=== PATIENT | female | born 1975 | race Caucasian/White ===

== ENCOUNTER 2016-09-26 07:53 | Observation (INO) | payer BC ==
[2016-09-07 08:25] VITALS: BMI 24.0
--- NOTE | 2016-09-07 08:58 | PAT Medication Instructions ---
Service Date Sep 07, 2016. Current Home Medication List Bupropion (Wellbutrin-Xl), 300 MG PO QAM Lorazepam (Ativan), 0.5 MG PO TID PRN for Anxiety Medication Instructions For Your Scheduled Surgery - Take the following medications the morning of surgery with a sip of water: Bupropion (Wellbutrin-Xl), 300 MG PO QAM Lorazepam (Ativan), 0.5 MG PO TID PRN for Anxiety - Take the following medications as scheduled the night before surgery: Bupropion (Wellbutrin-Xl), 300 MG PO QAM Lorazepam (Ativan), 0.5 MG PO TID PRN for Anxiety If you have any questions please call us at [phone] (Kesha Dickinson PA-C) or [phone] or [phone]
[2016-09-07 10:02] LABS: BASO % 0.8 %; BASO ABS # 0.03 K/uL (0-0.2); COMPLETE YES; EOS % 2.2 %; HEMATOCRIT 38.3 % (37-47); LYMPH % 25.3 %; LYMPH ABS # 0.91 K/uL (1.2-3.4); MEAN CELL VOLUME 83.4 fL (80-100); MEAN CORPUSCULAR HEMOGLOBIN 29.2 pg (25-34); MEAN PLATELET VOLUME 9.6 fL (7.4-10.4); MONO % 8.9 %; NEUT % 62.8 %; PLATELET COUNT 277 K/uL (130-400); RED BLOOD COUNT 4.59 M/uL (4.2-5.4)
[2016-09-07 10:27] LABS: BUN/CREATININE RATIO 11.7 (10-20); CALCIUM 9.1 mg/dl (8.5-10.1); CREATININE 0.65 mg/dl (0.60-1.20); POTASSIUM 3.6 mmol/L (3.5-5.1)
[2016-09-26] VITALS (7 sets, daily range): BP systolic 98–115; BP diastolic 62–77; PULSE 81–91; TEMP 36.2–36.9; O2SAT 96–99; Ht 157.5 cm; Wt 61.3 kg
[~2016-09-26] VITALS: Ht 157.5 cm; Wt 61.3 kg
[~2016-09-26 07:53] MED LIST: BUPRTAB51 PO; LACTATED RINGER'S 1000ML 1,000 ML IV SCH; LORA-741 PO
[2016-09-26] MEDS ORDERED: ROCURONIUM BROMIDE 10 MG/ML 5 ML VIAL ONE (08:30)
[2016-09-26] MEDS ORDERED: DEXAMETHASONE SOD INJ 4 MG/ML VIAL ONE (08:30)
[2016-09-26] MEDS ORDERED: GLYCOPYRROLATE INJ 0.2 MG/ML VIAL ONE ×2 (08:30→12:33)
[2016-09-26] MEDS ORDERED: NEOSTIGMINE METHYLSULFATE 5 MG/5 ML SYR ONE (08:30)
[2016-09-26] MEDS ORDERED: ONDANSETRON INJ 2 MG/ML 2 ML VIAL ONE ×2 (08:30→11:42)
[2016-09-26] MEDS ORDERED: LIDOCAINE HCL 2% 2 ML VIAL (20MG/ML) ONE (08:30)
[2016-09-26] MEDS ORDERED: FENTANYL CITRATE INJ 50 MCG/1 ML 2 ML VIAL ONE (08:30)
[2016-09-26] MEDS ORDERED: MIDAZOLAM HCL 1 MG/ML 2ML VIAL ONE (08:30)
[2016-09-26] MEDS ORDERED: PROPOFOL IV EMULSION 10 MG/ML 20 ML VIAL IV ONE (08:30)
[2016-09-26] MEDS ORDERED: METHYLENE BLUE 0.5% 10 ML VIAL ONE (09:16)
[2016-09-26] MEDS ORDERED: BACITRACIN 50000 UNIT VIAL ONE (09:17)
[2016-09-26] MEDS ORDERED: CEFAZOLIN SOD 1 GM VIAL ONE (09:17)
[2016-09-26] MEDS ORDERED: BACITRACIN OINT 15 GM TUBE ONE (09:17)
--- NOTE | 2016-09-26 09:28 | History & Physical Bridge Note ---
H&P Re-Evaluation Bridge Note: I have examined the patient, reviewed the History & Physical and in the interval since the performance of the History & Physical I have noted the following changes of clinical significance: No changes noted
[2016-09-26] MEDS ORDERED: SCOPOLAMINE 1.5 MG TDSY TD ONE (09:47)
--- NOTE | 2016-09-26 09:58 | DIAGNOSTIC IMAGING REPORT ---
LYMPHOSCINTIGRAPHY CLINICAL HISTORY: Right breast cancer. PROCEDURE: Using standard sterile technique, 4 intradermal and one deep injection of 0.5 mCi of Lymphoseek was placed in the right breast. The patient tolerated the procedure well. There were no immediate complications. The patient was subsequently transported to the surgical suite. No imaging was obtained at the referring physician's request. IMPRESSION: Injection of 0.5 mCi of Lymphoseek in the right breast. Electronically signed by: Emiliano Vaughan M.D. 09/26/2016 9:57 AM Dictated Date/Time: 09/26/2016 9:45 AM
[2016-09-26] MEDS: CEFAZOLIN 2000 MG/60 ML D5W IV SCH ×2 (10:18→16:42)
[2016-09-26] MEDS: LACTATED RINGER'S 1000ML 1,000 ML IV SCH ×2 (10:25→16:42)
[2016-09-26] MEDS ORDERED: HYDROmorphone INJ 2 MG/ML SYR/VIAL ONE ×2 (10:47→15:36)
[2016-09-26] MEDS ORDERED: SUCCINYLCHOLINE 100MG/5ML SYR IV ONE (10:50)
--- NOTE | 2016-09-26 13:32 | [facility] Post Operative Brief Note ---
Immediate Operative Summary Operative Date Sep 26, 2016. Pre-Operative Diagnosis breast cancer Post-Operative Diagnosis same as preop Procedure(s) Performed Right Mastectomy with [place] Lymph Node Biopsy and Axillary Node Dissection; Right Breast Reconstruction with Tissue Expanders and Allograft Surgeon Dr. Yuni Mast & Dr. Sd Fernandez Facing Machine Operator Surgeon(s) Gia Mckinney PA-C & Lorraine Kingston PA-C & Estimated Blood Loss 20 cc Findings See dictation Specimens A:[place] and nonsentinal lymph nodes -right breast B: right breast and axillary contents- silk stitch lateral Frozen: 1. sentinel lymph node #1 blue invevo 47, exvevo 845- left room at 1147 2. sentinel lymph node #2 invevo 111, exvevo 325- left room at 1153 Drains 2 J-P drains Anesthesia General Complication(s) None Disposition Recovery Room / PACU
[2016-09-26] MEDS ORDERED: MoRPHine SULFATE 4 MG/ML 1 ML CARP\\VIAL IV PRN (13:45)
[2016-09-26] MEDS ORDERED: ONDANSETRON INJ 2 MG/ML 2 ML VIAL IV PRN ×2 (13:45→15:30)
[2016-09-26] MEDS ORDERED: METOPROLOL TARTRATE 1 MG/ML VIAL ONE (14:09)
--- NOTE | 2016-09-26 14:24 | OPERATIVE REPORT ---
DATE OF OPERATION: 09/26/2016 PREOPERATIVE DIAGNOSIS: Carcinoma of the right breast. POSTOPERATIVE DIAGNOSIS: Carcinoma of the right breast with metastatic disease to the axillary lymph nodes. PROCEDURE: Mastectomy with sentinel lymph node biopsy followed by axillary node dissection, which was performed by and then immediate reconstruction performed by Dr. Rory Fernandez who will dictate that portion of the case mgr: Gia Ramos PA-C. FINDINGS: The mass was in the lower outer portion of the breast. Its surface was not encountered. The flaps were of uniform thickness. There did not appear to be extension posterior to the prepectoral fascia. The patient had 2 sentinel lymph nodes identified, and 1 nonsentinel lymph node. The first sentinel lymph node had an in-vivo count of 47 and ex-vivo count of 845 and the second sentinel lymph node had an in-vivo count of 111 with an ex-vivo count of 325. Frozen section on sentinel lymph node #1 revealed a macrometastasis measuring approximately 4 mm. This was a small lymph node. The second was also small lymph node but was negative for metastatic disease. There were multiple large stones in the axilla. The thoracodorsal nerve and the long thoracic nerve were identified and preserved. They were tested at the end of the resection and were intact. The sentinel lymph node #1 was blue. TECHNIQUE: The patient was given a general anesthetic and the area was prepped and draped in the usual sterile fashion. Prior to prepping and draping blue dye was injected in the periareolar area. The incision was sketched on the breast. Superior and inferior incisions were made. The superior incision flap was created keeping a uniform thickness working from inferior to superior using cautery up to the clavicle and working from the lateral border of the sternum on the medial side to the skin portion of the incision laterally. The inferior flap was then created in a similar fashion. Once that was completed, I was then able to approach the axilla after the lateral breast from the skin. The Neoprobe was used to identify the 2 sentinel lymph nodes. Once they were able to be identified and grasped with an Allis and were from the surrounding tissues using the LigaSure and sent for pathology with findings as above. Waiting for the pathology, the nonsentinel lymph node which was rather large was identified. This was away from the surrounding tissues as well. It did not require a frozen section after results from the 1st one were available. At that point, axillary node dissection became necessary. The prepectoral fascia was divided along the dissection of the flaps and then off the anterior surface of the pectoralis major muscle until the lateral border was identified. It was dissected then posteriorly along the chest wall until that allowed me then to enter the axilla. Additional axillary fascia was opened and I was able to then work superiorly until I could identify the axillary vein. Axillary vein was skeletonized in the mid portion working medial to lateral over towards the chest wall. One of the large anterior veins extending inferiorly off that was identified. It was left intact until I identified the 2 nerves, but eventually was noted ligated proximally, distally and divided. Once I identified that I worked a little bit more laterally and worked posteriorly and was then able to identify the thoracodorsal neurovascular bundle. Once that was identified, the tissue on the anterior surface was dissected away using blunt and sharp dissection where appropriate. That allowed me then to complete the lateral dissection off the inferior border of the axillary vein. That allowed me to better visualize the thoracodorsal neurovascular bundle. The thoracodorsal nerve was identified, was stimulated and was intact. I then dissected and freed the medial side of that and worked over towards the chest wall which then allowed me to identify the long thoracic nerve. The tissue between the long thoracic nerve and the thoracodorsal bundle was then dissected away from the deeper tissue and away from the latissimus muscle. I had elevated the lateral border of the pectoralis major and pectoralis minor and dissected the level 2 nodes away including them with the specimen. That allowed me to better visualize the long thoracic nerve and to leave it intact keeping the axillary tissue medial until the nerve entered the serratus anterior musculature. That then allowed better visualization of the course of the thoracodorsal bundle. That was then dissected away from that until it dove posteriorly towards the latissimus. Once it was completely freed, I was then able to complete the lateral dissection of the axillary contents and the inferior dissection. The remainder of the lateral skin attachments were divided and the specimen was completely. This specimen was marked laterally with a silk suture and sent for pathology. The area was then inspected for bleeding. The nerves were again stimulated and were intact. The axilla was irrigated and irrigation removed. There was no further oozing. Reconstruction was then performed and that portion will be dictated by Dr. Fernandez. The blood loss from that portion of the case was 20 mL. Sponge, needle and instrument counts were correct. I attest to the content of the Intraoperative Record and any orders documented therein. Any exceptio ns are noted below.
[2016-09-26] MEDS ORDERED: MUPIROCIN 2% OINT 22 GM TUBE ONE (14:39)
[2016-09-26] MEDS ORDERED: IV FLUIDS COMPLETED PRN (15:00)
[2016-09-26] MEDS ORDERED: ATROPINE SULFATE 0.1 MG/ML 5ML SYR IV PRN (15:30)
[2016-09-26] MEDS ORDERED: PHENYLEPHRINE 100MCG/ML 5ML SYR IV PRN (15:30)
[2016-09-26] MEDS ORDERED: HYDROmorphone INJ 2 MG/ML SYR/VIAL IV PRN (15:30)
[2016-09-26] MEDS ORDERED: EpHEDrine SULFATE INJ 50 MG/ML AMP IV PRN (15:30)
--- NOTE | 2016-09-26 15:37 | OPERATIVE REPORT ---
DATE OF OPERATION: 09/26/2016 ADDENDUM The allograft used was AlloMax 1 surgical graft, lot #[id number], serial #[id number], reference #[id number], expiration date ____. I attest to the content of the Intraoperative Record and any orders documented therein. Any exceptio ns are noted below.
--- NOTE | 2016-09-26 15:45 | Anesthesiology Progress Note ---
Anesthesia Post Op Note Date & Time Sep 26, 2016 at 15:45 Vital Signs Pain Intensity: 9 Vital Signs Past 12 Hours Date Time Temp Pulse Resp B/P Pulse Ox O2 Delivery O2 Flow Rate FiO2 09/26/16 15:37 90 17 09/26/16 15:31 90 17 09/26/16 15:31 91 17 100 09/26/16 15:30 129/78 09/26/16 15:26 77 10 100 09/26/16 15:26 78 10 09/26/16 15:25 123/82 09/26/16 15:21 91 26 09/26/16 15:21 92 26 100 09/26/16 15:20 125/80 09/26/16 15:16 92 21 09/26/16 15:16 92 21 100 09/26/16 15:15 117/63 09/26/16 15:11 91 11 09/26/16 15:11 91 11 122/73 99 09/26/16 15:06 89 3 09/26/16 15:06 89 3 126/78 99 09/26/16 15:06 36.4 89 16 126/78 99 Mask 10 09/26/16 08:15 36.9 81 16 115/76 99 Room Air Notes Mental Status: alert / awake / arousable, participated in evaluation Pt Amnestic to Procedure: Yes Nausea / Vomiting: adequately controlled Pain: adequately controlled Airway Patency, RR, SpO2: stable & adequate BP & HR: stable & adequate Hydration State: stable & adequate Anesthetic Complications: no major complications apparent
[2016-09-26] MEDS: SODIUM CHLORIDE 0.9% 1000ML 1,000 ML IV SCH ×2 (16:41→23:49)
[2016-09-26] MEDS: OXYCODONE/ACETAMINOPHEN 5-325 TAB PO PRN (18:57)
[2016-09-26] MEDS: CEPHALEXIN MONOHYDRATE 500 MG CAP PO SCH ×2 (19:01→21:02)
[2016-09-27 03:06] VITALS: BP 100/60; PULSE 95; TEMP 36.8; O2SAT 95
[2016-09-27] MEDS: OXYCODONE/ACETAMINOPHEN 5-325 TAB PO PRN ×4 (03:16→19:33)
--- NOTE | 2016-09-27 07:04 | OPERATIVE REPORT ---
DATE OF OPERATION: 09/26/2016 PREOPERATIVE DIAGNOSIS: Carcinoma, right breast. POSTOPERATIVE DIAGNOSIS: Same. PROCEDURE: Staged immediate reconstruction, right breast with tissue lacquer shader and allograft. SURGEON: Dr. Rory Fernandez. SOMMELIER: Lorraine Galarza PA-C ANESTHESIA: General endotracheal. ESTIMATED BLOOD LOSS: 43 mL. FLUIDS: 2 liters. URINE: 600 mL DRAINS: Two #10 flat David-Mcnulty drains. ATTESTATION: Present for the entire procedure. INDICATIONS: The patient is a 41-year-old female referred to me by Dr. Mast to discuss reconstructive options. After careful discussion, she elected to proceed with a tissue lacquer shader allograft method. A unilateral reconstruction will be performed. She has small breasts and therefore we will use something in the 350 cubic cm range. DESCRIPTION OF PROCEDURE: In the preoperative holding area, I marked the patient with her standing, I marked the inframammary crease as well as anterior axillary line. She was brought to the operating room where she was placed under general endotracheal anesthesia, identified her with 2 forms of identification documented in the nursing log above. Following preparation and draping, a timeout was held. The procedure for plastic surgery commenced after Dr. Mast finished the mastectomy. First the inframammary crease was defined along the chest wall by marking it. Next, the pectoralis major muscle was elevated off the chest wall and the origin from 6 o'clock to 9 o'clock was dissected and taken down. The wounds were irrigated. A piece of AlloMax 1 allograft was brought up to the field. It was soaked in 3 separate baths of saline for 5 minutes each. It was then sutured into position medially and laterally with interrupted 2-0 Vicryl sutures. Laterally, it was tacked to the chest wall. A Cope CPX4 tall height tissue lacquer shader with tabs and was brought up to the field. It did not have any air leaks. It was just placed into the wound and markings were then made to correspond to the anterior axillary line as well as the inframammary crease. It was then deflated and placed back in a protective basin. The allograft was sutured at markings had been made at 6 o'clock, 9 o'clock and 3 o'clock for the tab. These were marked on the skin. Two interrupted 2-0 Vicryl were placed inferiorly in the midline, leaving room for the tab. They were sutured to the chest wall and then to the subcutaneous tissue, correspond to the inframammary crease. Excess tissue was trimmed medially and laterally and again interrupted 2-0 Vicryls were placed in a similar fashion. This was then followed by running 2-0 Vicryl sutures, one starting medial and running towards the midline the other starting medial and running towards the axilla. The wounds were irrigated. Two stab wounds were made for #15 David-Mcnulty drains, which were later placed, one into the pocket and axilla where Dr. Mast to perform axillary dissection, the other was then placed anteriorly and inferiorly placed subcutaneously. Three 2-0 Vicryls were placed underneath the allograft along the inframammary crease at 6 o'clock, 9 o'clock and 3 o'clock; they were placed with the suture tabs. The lacquer shader was drawn down into the pocket and the sutures were secured. The pocket was then closed with running 2-0 Vicryl sutures, one starting medial working towards the midline and the other lateral working towards the midline and they were tied to each other. 50 mL of saline were injected through a closed system into the lacquer shader. The wounds were then closed with buried 3-0 Monocryl dermal sutures and a running 3-0 Quill subcuticular suture. Dermabond was applied to the incision, dressings, a surgical bra applied, the patient was extubated and returned to the recovery area in stable condition. The allograft used was AlloMax 1 surgical graft, lot #[id number], serial #[id number], reference #[id number], expiration date 2021-02. I attest to the content of the Intraoperative Record and any orders documented therein. Any exceptions are noted below. [facility]
[2016-09-27 07:52] VITALS: BP 104/70; PULSE 91; TEMP 37; O2SAT 96
[2016-09-27 08:40] LABS: BASO % 0.1 %; BASO ABS # 0.01 K/uL (0-0.2); COMPLETE YES; EOS % 0.2 %; HEMATOCRIT 33.3 % (37-47); IG% 0.2 %; LYMPH % 23.3 %; LYMPH ABS # 1.98 K/uL (1.2-3.4); MEAN CELL VOLUME 83.9 fL (80-100); MEAN CORPUSCULAR HEMOGLOBIN 28.5 pg (25-34); MEAN CORPUSCULAR HGB CONC 33.9 g/dl (32-36); MONO % 7.1 %; NEUT % 69.1 %; PLATELET COUNT 260 K/uL (130-400); RED BLOOD COUNT 3.97 M/uL (4.2-5.4)
[2016-09-27] MEDS: CEPHALEXIN MONOHYDRATE 500 MG CAP PO SCH ×4 (09:37→20:25)
[2016-09-27] MEDS: SODIUM CHLORIDE 0.9% 1000ML 1,000 ML IV SCH (09:43)
--- NOTE | 2016-09-27 10:21 | Surgery Progress Note ---
Surgery Progress Note Date of Service Sep 27, 2016. Subjective Post OP Day: 1 (s/p right mastectomy with axillary lymph node dissection and immediate reconstruction) Objective Vital Signs: Date Time Temp Pulse Resp B/P Pulse Ox O2 Delivery O2 Flow Rate FiO2 09/27/16 08:19 Room Air 09/27/16 07:52 37.0 91 18 104/70 96 Room Air 09/27/16 03:06 36.8 95 14 100/60 95 Room Air 09/26/16 23:50 Room Air 09/26/16 23:05 36.7 81 16 98/62 96 Room Air 09/26/16 19:37 36.6 87 17 104/70 97 Nasal Cannula 2.0 09/26/16 18:42 36.4 85 17 111/69 97 Nasal Cannula 2.0 09/26/16 17:32 36.9 85 16 102/68 97 Nasal Cannula 2.0 09/26/16 17:07 36.2 85 17 110/71 97 Nasal Cannula 2.0 09/26/16 16:35 98 Nasal Cannula 2.0 09/26/16 16:35 98 Nasal Cannula 2.0 09/26/16 16:35 36.9 91 16 114/77 98 Nasal Cannula 2.0 09/26/16 16:08 90 11 09/26/16 16:08 90 11 98 09/26/16 16:05 115/80 09/26/16 16:03 82 7 09/26/16 16:03 82 7 98 09/26/16 16:00 36.6 92 18 115/80 99 Nasal Cannula 2 09/26/16 16:00 115/77 09/26/16 15:58 78 7 99 09/26/16 15:58 78 7 09/26/16 15:55 115/76 09/26/16 15:53 79 8 91 09/26/16 15:53 79 8 09/26/16 15:50 123/83 09/26/16 15:48 84 9 09/26/16 15:48 83 9 93 09/26/16 15:45 120/80 09/26/16 15:43 82 7 09/26/16 15:43 82 7 99 09/26/16 15:40 130/76 09/26/16 15:38 87 9 100 09/26/16 15:38 88 9 09/26/16 15:37 90 17 09/26/16 15:31 90 17 09/26/16 15:31 91 17 100 09/26/16 15:30 129/78 09/26/16 15:26 77 10 100 09/26/16 15:26 78 10 09/26/16 15:25 123/82 09/26/16 15:21 91 26 09/26/16 15:21 92 26 100 09/26/16 15:20 125/80 09/26/16 15:16 92 21 09/26/16 15:16 92 21 100 09/26/16 15:15 117/63 09/26/16 15:11 91 11 09/26/16 15:11 91 11 122/73 99 09/26/16 15:06 89 3 09/26/16 15:06 89 3 126/78 99 09/26/16 15:06 36.4 89 16 126/78 99 Mask 10 Physical Exam: NIK drainage (serosanguienous) General Appearance: WD/WN, no apparent distress Head: normocephalic, atraumatic Respiratory/Chest: no respiratory distress, no accessory muscle use Incision(s): clean (dressing intact, incision not inspected POD #1), dry Laboratory Results: Results Past 24 Hours Test 09/27/16 08:30 Range/Units White Blood Count 8.50 4.8-10.8 K/uL Red Blood Count 3.97 4.2-5.4 M/uL Hemoglobin 11.3 12.0-16.0 g/dL Hematocrit 33.3 37-47 % Mean Corpuscular Volume 83.9 80-100 fL Mean Corpuscular Hemoglobin 28.5 25-34 pg Mean Corpuscular Hemoglobin Concent 33.9 32-36 g/dl Platelet Count 260 130-400 K/uL Mean Platelet Volume 9.0 7.4-10.4 fL Neutrophils (%) (Auto) 69.1 % Lymphocytes (%) (Auto) 23.3 % Monocytes (%) (Auto) 7.1 % Eosinophils (%) (Auto) 0.2 % Basophils (%) (Auto) 0.1 % Neutrophils # (Auto) 5.87 1.4-6.5 K/uL Lymphocytes # (Auto) 1.98 1.2-3.4 K/uL Monocytes # (Auto) 0.60 0.11-0.59 K/uL Eosinophils # (Auto) 0.02 0-0.5 K/uL Basophils # (Auto) 0.01 0-0.2 K/uL RDW Standard Deviation 39.7 36.4-46.3 fL RDW Coefficient of Variation 13.0 11.5-14.5 % Immature Granulocyte % (Auto) 0.2 % Immature Granulocyte # (Auto) 0.02 0.00-0.02 K/uL Assessment & Plan POD # 1 s/p Right Simple Mastectomy with Axillary Lymph Node dissection and immediate reconstruction -AVSS - No leukocytosis - Pain moderate, controlled - tolerating regular diet - H&H stable Plan: Continue current pain management po prn continue regular diet continue NIK drains to bulb suction Stay one more night Dr. Mast to evaluate tomorrow Encouraged ambulation Dr. Richardson has seen and examined patient, agrees with above stated findings and treatment plan.
[2016-09-27 12:00] VITALS: BP 115/81; PULSE 78; TEMP 37; O2SAT 98
[2016-09-27 16:12] VITALS: BP 129/85; PULSE 85; TEMP 36.7; O2SAT 96
[2016-09-27] MEDS: DOCUSATE SODIUM 100 MG CAP PO SCH (20:25)
[2016-09-27 23:45] VITALS: BP 123/79; PULSE 67; TEMP 36.6; O2SAT 97
[2016-09-28] MEDS: OXYCODONE/ACETAMINOPHEN 5-325 TAB PO PRN ×3 (00:21→10:40)
--- NOTE | 2016-09-28 07:10 | Surgery Progress Note ---
Surgery Progress Note Date of Service Sep 28, 2016. Subjective Post OP Day: 2 + flatus, + pain controlled (Incision clean and dry), No nausea, No vomiting Incisional pain Objective Vital Signs: Date Time Temp Pulse Resp B/P Pulse Ox O2 Delivery O2 Flow Rate FiO2 09/28/16 00:10 Room Air 09/27/16 23:45 36.6 67 16 123/79 97 Room Air 09/27/16 16:12 36.7 85 18 129/85 96 Room Air 09/27/16 16:00 Room Air 09/27/16 12:00 37.0 78 16 115/81 98 09/27/16 08:19 Room Air 09/27/16 07:52 37.0 91 18 104/70 96 Room Air Physical Exam: NIK drainage (NIK#1:120 cc yesterday, 40cc last shift; NIK#2: 135cc yesterday, 50cc last shift; serosanguinous) Laboratory Results: Results Past 24 Hours Test 09/27/16 08:30 09/28/16 04:44 Range/Units White Blood Count 8.50 4.8-10.8 K/uL Red Blood Count 3.97 4.2-5.4 M/uL Hemoglobin 11.3 12.0-16.0 g/dL Hematocrit 33.3 37-47 % Mean Corpuscular Volume 83.9 80-100 fL Mean Corpuscular Hemoglobin 28.5 25-34 pg Mean Corpuscular Hemoglobin Concent 33.9 32-36 g/dl Platelet Count 260 130-400 K/uL Mean Platelet Volume 9.0 7.4-10.4 fL Neutrophils (%) (Auto) 69.1 % Lymphocytes (%) (Auto) 23.3 % Monocytes (%) (Auto) 7.1 % Eosinophils (%) (Auto) 0.2 % Basophils (%) (Auto) 0.1 % Neutrophils # (Auto) 5.87 1.4-6.5 K/uL Lymphocytes # (Auto) 1.98 1.2-3.4 K/uL Monocytes # (Auto) 0.60 0.11-0.59 K/uL Eosinophils # (Auto) 0.02 0-0.5 K/uL Basophils # (Auto) 0.01 0-0.2 K/uL RDW Standard Deviation 39.7 36.4-46.3 fL RDW Coefficient of Variation 13.0 11.5-14.5 % Immature Granulocyte % (Auto) 0.2 % Immature Granulocyte # (Auto) 0.02 0.00-0.02 K/uL Assessment & Plan S/P right mastectomy with right axiliary node dissection Doing well D/C to home Follow up with Dr. Fernandez as scheduled Follow up with me in 2 weeks.
--- NOTE | 2016-09-28 07:15 | Discharge Instructions ---
Discharge Instructions Date of Service Sep 28, 2016. Admission Reason for Admission: Malignant Adrian of Lower Outer Quadrant of Right Sandrine Discharge Discharge Diagnosis / Problem: Same Discharge Goals Goal(s): Improve disease control Activity Recommendations Activity Limitations: per Instructions/Follow-up section Lifting Limitations: no more than 10 pounds (with right arm) Shower/Bathe: keep incision dry . Instructions / Follow-Up Instructions / Follow-Up MEDICATIONS: Resume previous medications unless instructed otherwise by your surgeon. * Percocet 5/325 mg one tablet every 4 hours as needed for pain. * Ibuprofen 600 mgm every 6 hours as needed for pain. * Keflex 500 mg 4 times per day until drains removed SPECIAL CARE INSTRUCTIONS: * Wear bra day and night until seen in office. * Empty and record drains at least 3 times per or as needed. Record each drain separately * Call the surgeon's office with any questions or concerns - (ex. temperature higher than 101 degrees F, excessive bleeding or pain). FOLLOW UP VISIT: If not already scheduled, please call the office for a follow-up appointment for next week at . Current Hospital Diet Patient's current hospital diet: Regular Diet Discharge Diet Recommended Diet: Regular Diet Procedures Procedures Performed: Right Mastectomy with [place] Lymph Node Biopsy and Axillary Node Dissection; Right Breast Reconstruction with Tissue Expanders and Allograft Pending Studies Studies pending at discharge: yes List of pending studies: Pathology Medical Emergencies . Who to Call and When: Medical Emergencies: If at any time you feel your situation is an emergency, please call 911 immediately. . Non-Emergent Contact Non-Emergency issues call your: Primary Care Provider, Surgeon Call Non-Emergent contact if: your pain is worsening, wound has increased redness, wound has increased pain . "Provider Documentation" section prepared by Alex Mast. VTE Core Measure Inpt VTE Proph given/why not?: Treatment not indicated
[2016-09-28 08:03] VITALS: BP 132/86; PULSE 68; TEMP 36.7; O2SAT 96
[2016-09-28 08:15] LABS: BASO % 0.3 %; BASO ABS # 0.02 K/uL (0-0.2); COMPLETE YES; EOS % 0.9 %; HEMATOCRIT 33.9 % (37-47); IG% 0.1 %; LYMPH ABS # 2.05 K/uL (1.2-3.4); MEAN CELL VOLUME 83.9 fL (80-100); MEAN CORPUSCULAR HEMOGLOBIN 28.7 pg (25-34); MEAN CORPUSCULAR HGB CONC 34.2 g/dl (32-36); MEAN PLATELET VOLUME 9.2 fL (7.4-10.4); NEUT % 61.7 %; PLATELET COUNT 260 K/uL (130-400); RED BLOOD COUNT 4.04 M/uL (4.2-5.4); WHITE BLOOD COUNT 6.84 K/uL (4.8-10.8)
[2016-09-28] MEDS: CEPHALEXIN MONOHYDRATE 500 MG CAP PO SCH (08:41)
[2016-09-28] MEDS: DOCUSATE SODIUM 100 MG CAP PO SCH (08:41)
[2016-09-28 10:28] VITALS: BP 132/86; PULSE 68; TEMP 36.7; O2SAT 96
--- NOTE | 2016-09-30 11:05 | Discharge Summary ---
Discharge Summary Dates Admission Date / Time: Sep 26, 2016 at 13:38 Discharge Date: Sep 28, 2016 Dispostion / Condition Discharge Disposition: Home Condition at Discharge: Good Principal Diagnosis (1) Breast cancer metastasized to axillary lymph node Problem List (1) Breast cancer metastasized to axillary lymph node (2) Broken jaw Consultations / Procedures Consultations: None Procedures: Right simple mastectomy with sentinel lymph node biopsy and axillary dissection Immediate reconstruction with tissue expanders and allograft Pending Studies / Follow-Up None Medication Reconciliation Continued Medications: Bupropion (Wellbutrin-Xl) 300 Mg Tabcr 300 MG PO QAM, TAB Lorazepam (Ativan) 0.5 Mg Tab 0.5 MG PO TID PRN for Anxiety, TAB Admission HPI Per the Admitting provider: Yolis is a 41 year-old female who was scheduled for elective right simple mastectomy and sentinel lymph node biopsy for diagnosis of right breast invasive ductal carcinoma. Yolis was also having immediate reconstruction with Dr. Fernandez with tissue expanders and allograft. Hospital Course (1) Breast cancer metastasized to axillary lymph node Patient tolerated procedures well and was transferred to PACU in stable condition. She was taken to Med/Surg floor for her postoperative care. She was started on oral antibiotics for the reconstruction with allograft (Keflex). Diet was advanced to regular no restrictions diet, IV and oral pain medication was ordered as needed and IV fluids continued. POD # 1 Yolis was doing well. Pain controlled with oral pain medication, no chest pain, shortness of breath, nausea, or vomiting. She had about 45 cc from NIK Drain # 1 and 120 cc from NIK drain # 2 since surgery. Serosanguineous. H&H stable. Incision was not inspected on POD # 1. POD # 2, pain controlled, NIK drain still serosanguineous but decreasing. Vitals stable and tolerating regular diet. She was discharged home with NIK drains on POD # 2. Overall hospital course was uneventful. Discharge Instructions As given to patient Copies To Primary Care Provider: Mary Adrian DO. Problem Qualifiers (1) Breast cancer metastasized to axillary lymph node: Laterality: right Qualified Codes: C50.911 - Malignant neoplasm of unspecified site of right female breast; C77.3 - Secondary and unspecified malignant neoplasm of axilla and upper limb lymph nodes
[2017-01-18] MEDS ORDERED: PROC1TAB5 PO (08:16)
[2017-01-18] MEDS ORDERED: ONDA8TAB12 PO (08:16)
[2017-01-18] MEDS ORDERED: DXM/4 PO (08:17)
[2017-01-18] MEDS ORDERED: POLY335019 PO (08:23)
[2017-04-24] MEDS ORDERED: BUPRTAB51 PO (15:30)
== END 2016-09-28 11:00 | disposition home or self-care (01) ==
LOC: ENRESERVTM → ENRESERVDT → C.ACU 07:53 → C.MSN 13:38
PROVIDERS: ADMIT Surgery; ATTEND Surgery
DX: C50.911 Malignant neoplasm of unspecified site of right female breast (principal); C77.3 Secondary and unspecified malignant neoplasm of axilla and upper limb lymph nodes

== ENCOUNTER → 2017-06-28 | Outpatient (CLI) | payer OTHER ==
[~2017-06-28] MED LIST changes: -LACTATED RINGER'S 1000ML 1,000 ML IV SCH; +POLY335019 PO; +TAMO20TA9 PO
[2017-06-28 15:02] VITALS: BP 106/73; PULSE 75; TEMP 36.4; O2SAT 98
--- NOTE | 2017-06-28 16:17 | Radiation Oncology Follow-Up ---
Radiation Oncology Follow-Up Date of Visit Jun 28, 2017. Reason For Visit One-month follow-up in cancer survivorship care plan Radiation Completion Date finished 05-23-2017 Diagnosis (1) Breast cancer metastasized to axillary lymph node Onset Date: 06/15/2016 Histology Subtype: ductal Stage: ll (B) Permanent Comment: Abnormal right breast mammogram Status post biopsy 06/15/2016 Invasive ductal carcinoma Estrogen receptor positive, progesterone receptor positive, HER-2/ruben negative Status post bilateral MRI 07/19/2016 Status post right mastectomy and sentinel lymph node biopsy followed by axillary node dissection. Immediate reconstruction with tissue expanders on 08/2016 Stage pT2 pN1a 3 of 24 nodes positive BRCA1 and BRCA2 analysis negative Systemic chemotherapy 4 cycles of Adriamycin and Cytoxan followed by weekly Taxol for 12 weeks Status post completion of radiation therapy to the right chest wall, supraclavicular and axilla 05/23/2017. She received 6240 cGy utilizing conventional radiation therapy. Last Edited By: Josephine Peñaloza on Jun 28, 2017 16:12 History of Present Illness Ms. Bello is without a family history of breast cancer. He underwent her first bilateral screening mammogram on 05/20/2015. This showed no abnormalities and was given a BI-RADS Category 1. More recently on 06/08/2016 the patient underwent a repeat bilateral breast mammogram and ultrasound. This showed a solid mass at the 7 o'clock position involving the right breast. This lesion measured 2.1 x 1.0 x 1.1 cm. Patient went on to have a biopsy of the right breast at the 6 to 7 o'clock position along the areolar edge on 2015. This revealed an invasive ductal carcinoma, histologic grade 2. The tumor measured 1.3 cm in greatest dimension. Estrogen receptors were strongly positive, progesterone receptors were strongly positive and HER-2/ruben on "protein expression was negative by IHC. Accession #: [id number]. The patient was seen by Dr. Mast on 07/06/2016. His examination revealed a palpable mass in the lower inner breast at the edge of the areola. No axillary adenopathy was appreciated. No other changes were noted. He discussed surgical options that included breast lumpectomy versus mastectomy with or without reconstruction. The patient was considering her options. Dr. Mast ordered breast MRI given her very dense breasts. The patient underwent bilateral breast MRIs with and without contrast on 07/23/2016.. In the right breast an irregular enhancing 1.7 x 1.4 x 1.4 cm mass was noted in the lower outer quadrant at the site of the known cancer. This demonstrated fast initial enhancement with washout. No other areas of abnormal enhancement were seen. No abnormal axillary lymph nodes were visualized. In the left breast no suspicious enhancement were seen no abnormal axillary lymph nodes were visualized. The patient wished, after consideration to proceed with a right breast mastectomy and immediate reconstruction. Patient ultimately met with Dr. Fernandez to discuss these options. The patient agreed to proceed with a mastectomy on the right with immediate reconstruction utilizing subpectoral tissue expanders. On 09/26/2016 the patient underwent a right breast mastectomy and immediate reconstruction with subpectoral tissue expanders. The modified radical mastectomy specimen identified a tumor measuring 4.0 x 1.5 x 1.5 cm. This was an invasive mammary carcinomaspecial type. Was a Michael grade 2 of 3. There was intermediate grade DCIS without necrosis identified. There was no extensive intraductal component and no lymphovascular space invasion identified. There was no perineural invasion identified. The margin on the invasive carcinoma was negative with the closest margin 0.8 cm from the deep margin. The DCIS margin was negative with the distance from the closest margin 0.7 cm also from the deep margin. The patient had a sentinel lymph node removed. On frozen section it revealed a macro metastatic deposit of adenocarcinoma. Dr. aMst therefore proceeded with a axillary dissection and removed an additional 21 nodes. Of these additional 21 nodes 2 of them contained metastatic deposit 1 a macro met and the second a micro-met. Therefore a total of 3 out of 22 lymph nodes were positive to macro metastasis one micrometastasis. No extranodal extension was identified. The size of the largest prostatic deposit was 0.3 cm. The final AJCC pathologic staging was therefore a pT2 pN1a, ER positive, NJ positive and HER-2/ruben negative Case: [id number]. The patient was seen by Dr. Hero Levine for consideration of adjuvant systemic therapy. He ordered staging procedures consisting of a bone scan performed on 10/27/2016. This showed no evidence of osteoblastic metastatic disease. CT scan of the chest abdomen and pelvis was performed on 11/03/2016. This showed no evidence of metastatic disease within the soft tissue of the chest abdomen or pelvis. There was a thoracolumbar scoliosis appreciated. A small sclerotic density was noted within the T6 and T3 vertebral bodies most likely representing bone islands. There was no evidence of abnormal adenopathy appreciated. Patient did undergo genetic clinical evaluation. She was negative for BRCA1, BRCA2, CDH1, PALB2, PTENS, STK11 and TP53. He discussed adjuvant therapy with the patient. They agreed to proceed with Adriamycin and Cytoxan dose dense for 4 cycles to be followed by weekly Paclitaxel at 80 mg/m. The patient has started her systemic therapy. She is also started the filling of her subpectoral implant. She is completed her dose dense Adriamycin and Cytoxan and has started on her Paclitaxel. She is scheduled to receive her last filling of her tissue interior wall assembler on February 09 and is scheduled to complete her systemic chemotherapy on March 20. To date she is tolerating her systemic therapy fairly well. She does have some mild discomfort from her tissue expansion but otherwise is doing well. We were asked to see the patient for evaluation and discussion of the role of adjuvant radiation. She returned after completing her systemic chemotherapy. She underwent a CT simulation. She completed radiation therapy 05/23/2017. She received 6240 cGy utilizing hypo-fractionation. Interim History She has been doing well over the past month. She denies any difficulty with healing of the skin. She denies any pain. She did not develop any areas of wet desquamation. She has noticed no change to the axilla. There is been no change in the range of motion of the shoulder. She has been started on tamoxifen. She does have mild hot flashes. She had some mild discomfort in the ribs laterally. This is now resolved. She will have placement of the permanent implant in the future. She stated that the plastic surgeon had recommended at least 6 months of recovery post radiation. Allergies Coded Allergies: Meperidine (Verified Allergy, Mild, SHAKES/DIAPHORETIC, 09/26/16) Home Medications Scheduled Bupropion (Wellbutrin-Xl), 300 MG PO DAILY Tamoxifen (Nolvadex), 20 MG PO DAILYBB Scheduled PRN Lorazepam (Ativan), 0.5 MG PO TID PRN for Anxiety Polyethylene Glycol 3350 (Miralax), 17 GM PO DAILY PRN for Constipation Review of Systems Gastrointestinal: Symptoms: WNL Oral: Symptoms: No Problems Respiratory: Symptoms: WNL Urinary: Symptoms: WNL Skin: Symptoms: No Problems Breast: Right Upper Arm Measurement: 26.4 Right Mid Arm Measurement: 24.0 Right Wrist Measurement: 15.1 Left Upper Arm Measurement: 25.5 Left Mid Arm Measurement: 24.0 Left Wrist Measurement: 15.0 Arm Dominence: Right Patient Cosmetic Evaluation: Good Staff Cosmetic Evalaluation: Good Additional Notes: She completed a distress management report and answered "no" to all questions. Physical Exam Vital Signs Date Time Temp Pulse Resp B/P (MAP) Pulse Ox O2 Delivery O2 Flow Rate FiO2 06/28/17 15:02 36.4 75 16 106/73 98 Fatigue: None General Appearance: no apparent distress Eyes: normal inspection, EOMI ENT: normal ENT inspection, hearing grossly normal Neck: no adenopathy, thyroid normal Respiratory/Chest: lungs clear, no respiratory distress, no accessory muscle use Breast: Breast examination reveals tissue interior wall assembler on the right. There is resolving hyperpigmentation. There is no wet or dry desquamation. There is minimal cording. No difficulty with range of motion at the shoulder. There are no masses or tenderness and no change of the axilla. Using the Champion score cosmesis she has a good outcome. The left breast showed no masses or tenderness and no axillary adenopathy. Cardiovascular: regular rate, rhythm, no gallop, no murmur Abdomen: non tender, soft Extremities: no pedal edema Neurologic/Psychiatric: no motor/sensory deficits, alert, normal mood/affect Skin: warm/dry Pain Management Patient Reports Pain: No Side: Bilateral Patient Preferred Pain Scale: 0 - 10 Initial Pain Intensity: 0.0 Pain Management Plan She does not require pain management. Laboratory Laboratory Results: not applicable Pathology Pathology Results: not applicable Imaging Imaging Studies: not applicable Assessment & Plan Plan: Continue on tamoxifen. We discussed using vitamin E 400 international units to help with hot flashes. Continue follow-up with her breast surgeon and plastic surgeon. Continue follow-up with medical oncology and her primary care physician. We discussed the hyperpigmentation that is resolving. Today we completed a cancer survivorship care plan. A copy of the document was given to the patient. She was given a survivorship booklet. We discussed scheduling a mammography for the left breast. She plans to schedule this after she sees her mixer operator helper hot metal as she usually has done. We asked her to return to our office in 6 months. She may call if she has any questions or concerns in the interim. Total Time In Follow-Up I spent 20 minutes speaking to the patient and performing examination. I spent 20 minutes reviewing information, preparing the survivorship document, and completing this note. Copy To Alex Mast M.D.; Rory Fernandez M.D.; Mary Adrian,DO; Hero Levine M.D. Problem Qualifiers (1) Breast cancer metastasized to axillary lymph node: Laterality: right Qualified Codes: C50.911 - Malignant neoplasm of unspecified site of right female breast; C77.3 - Secondary and unspecified malignant neoplasm of axilla and upper limb lymph nodes
== END | disposition home or self-care (01) ==
LOC: C.ONC 14:57
PROVIDERS: ATTEND Physician Assistant Medical
DX: Z08 Encounter for follow-up examination after completed treatment for malignant neoplasm (principal); Z92.3 Personal history of irradiation; Z85.3 Personal history of malignant neoplasm of breast

== ENCOUNTER → 2018-01-17 | Outpatient (CLI) | payer BC, OTHER ==
[~2018-01-17] MED LIST changes: -BUPRTAB51 PO; +ESCI10TA17 PO; +POTA10CA28 PO
[2018-01-17 14:56] LABS: BASO % 0.8 %; BASO ABS # 0.03 K/uL (0-0.2); EOS % 1.5 %; EOS ABS # 0.06 K/uL (0-0.5); HEMOGLOBIN 11.5 g/dL (12.0-16.0); IG# 0.01 K/uL (0.00-0.02); LYMPH % 32.1 %; LYMPH ABS # 1.27 K/uL (1.2-3.4); MEAN CELL VOLUME 85.4 fL (80-100); MEAN CORPUSCULAR HEMOGLOBIN 28.9 pg (25-34); MEAN CORPUSCULAR HGB CONC 33.8 g/dl (32-36); MEAN PLATELET VOLUME 8.9 fL (7.4-10.4); MONO % 4.5 %; MONO ABS # 0.18 K/uL (0.11-0.59); NEUT % 60.8 %; NEUT ABS # 2.41 K/uL (1.4-6.5); PLATELET COUNT 206 K/uL (130-400); RED CELL DISTRIBUTION WIDTH CV 12.7 % (11.5-14.5); RED CELL DISTRIBUTION WIDTH SD 39.5 fL (36.4-46.3); WHITE BLOOD COUNT 3.96 K/uL (4.8-10.8)
[2018-01-17 15:05] LABS: PTT PATIENT 25.4 SECONDS (21.0-31.0)
[2018-01-17 15:35] LABS: BLOOD UREA NITROGEN 8 mg/dl (7-18); CALCIUM 8.1 mg/dl (8.5-10.1); CARBON DIOXIDE 25 mmol/L (21-32); CREATININE 0.65 mg/dl (0.60-1.20); GLUCOSE 115 mg/dl (70-99); POTASSIUM 3.1 mmol/L (3.5-5.1); SODIUM 139 mmol/L (136-145)
== END | disposition home or self-care (01) ==
LOC: C.CPL 07:47
PROVIDERS: ATTEND Plastic Surgery
DX: Z42.1 Encounter for breast reconstruction following mastectomy (principal); Z01.818 Encounter for other preprocedural examination

== ENCOUNTER 2018-01-22 05:49 | Day surgery (SDC) | payer BC, OTHER ==
[2018-01-16 15:13] VITALS: BMI 23.0
[2018-01-17 13:44] VITALS: BMI 24.0
--- NOTE | 2018-01-17 13:49 | PAT Medication Instructions ---
Service Date Jan 17, 2018. Current Home Medication List Escitalopram (Lexapro), 10 MG PO DAILY Lorazepam (Ativan), 0.5 MG PO TID PRN for Anxiety Polyethylene Glycol 3350 (Miralax), 17 GM PO DAILY PRN for Constipation Tamoxifen (Nolvadex), 20 MG PO DAILYBB Medication Instructions For Your Scheduled Surgery Tamoxifen (Nolvadex), 20 MG PO DAILYBB (currently on hold per surgeon) - Hold the following medications the morning of surgery: Polyethylene Glycol 3350 (Miralax), 17 GM PO DAILY PRN for Constipation - Take the following medications the morning of surgery with a sip of water: Escitalopram (Lexapro), 10 MG PO DAILY Lorazepam (Ativan), 0.5 MG PO TID PRN for Anxiety (if needed) - Take the following medications as scheduled the night before surgery: Lorazepam (Ativan), 0.5 MG PO TID PRN for Anxiety (if needed) Polyethylene Glycol 3350 (Miralax), 17 GM PO DAILY PRN for Constipation (if needed) If you have any questions please call us at [phone] or [phone] or [phone]
[~2018-01-22] VITALS: Ht 157.5 cm; Wt 59.0 kg
[~2018-01-22 05:49] MED LIST changes: -POTA10CA28 PO
[2018-01-22] MEDS ORDERED: LACTATED RINGER'S 1000ML 1,000 ML IV SCH (06:00)
[2018-01-22] MEDS ORDERED: CEFAZOLIN 2000MG IV PUSH 15 ML IV SCH (06:00)
[2018-01-22] MEDS ORDERED: POTA10CA28 PO (06:15)
[2018-01-22 06:17] VITALS: BP 107/68; PULSE 69; TEMP 36.5; O2SAT 100; Ht 157.5 cm; Wt 59.0 kg
[2018-01-22] MEDS ORDERED: CEFAZOLIN SOD 2000MG/15 ML IV PUSH ONE (06:40)
[2018-01-22] MEDS ORDERED: BUPIVACAINE 0.25% 30 ML VIAL ONE (06:57)
[2018-01-22] MEDS ORDERED: LIDOCAINE/EPINEPHRINE 1% 20 ML VIAL ONE (06:57)
[2018-01-22] MEDS ORDERED: SCOPOLAMINE 1.5 MG TDSY TD ONE (07:07)
[2018-01-22] MEDS ORDERED: BUPIVACAINE/EPINEPHRINE 0.25% 1:200,000 30 ML VIAL ONE (07:10)
[2018-01-22] MEDS ORDERED: DEXAMETHASONE SOD INJ 4 MG/ML VIAL ONE (07:10)
[2018-01-22] MEDS ORDERED: MIDAZOLAM HCL 1 MG/ML 2ML VIAL ONE ×2 (07:11)
[2018-01-22] MEDS ORDERED: FENTANYL CITRATE INJ 50 MCG/1 ML 2 ML VIAL ONE (07:11)
[2018-01-22] MEDS ORDERED: ROCURONIUM BROMIDE 10 MG/ML 5 ML VIAL ONE (08:06)
[2018-01-22] MEDS ORDERED: ONDANSETRON INJ 2 MG/ML 2 ML VIAL ONE (08:06)
[2018-01-22] MEDS ORDERED: LIDOCAINE HCL 2% 2 ML VIAL (20MG/ML) ONE (08:06)
[2018-01-22] MEDS ORDERED: PROPOFOL IV EMULSION 10 MG/ML 20 ML VIAL ONE (08:06)
[2018-01-22] MEDS ORDERED: GLYCOPYRROLATE INJ 0.2 MG/ML VIAL ONE (08:32)
[2018-01-22] MEDS ORDERED: NEOSTIGMINE METHYLSULFATE 5 MG/5 ML SYR ONE (08:32)
--- NOTE | 2018-01-22 09:00 | [facility] Post Operative Brief Note ---
Immediate Operative Summary Operative Date Jan 22, 2018. Pre-Operative Diagnosis status post 1st stage breast reconstruction; desires automatic packer operator removal Post-Operative Diagnosis same as preop Procedure(s) Performed Right Breast Implant Removal with Partial Capsulectomy Surgeon Dr. Chantell Johnston Metallurgical Specialist Surgeon(s) None Estimated Blood Loss 5 Findings Consistent with Post-Op Diagnosis Specimens Permanent Solution: A.) Right Breast Implant B.) Right Mastectomy Scar and Capsule Drains JPx1 Anesthesia Type General Regional Complication(s) none Disposition Disposition: Recovery Room / PACU
--- NOTE | 2018-01-22 09:13 | Discharge Instructions ---
Discharge Instructions Date of Service Jan 22, 2018. Admission Reason for Admission: Encounter For Breast Reconstruction Following Mast Discharge Discharge Diagnosis / Problem: s/p breast reconstruction; desired implant removal Discharge Goals Goal(s): Decrease discomfort, Improve function Activity Recommendations Activity Limitations: per Instructions/Follow-up section . Instructions / Follow-Up Instructions / Follow-Up ACTIVITY RECOMMENDATIONS: _x_Normal activities x__No bending, lifting or straining __No driving _x_Driving allowed when you are off pain medications _x_Walking permitted __You should have help at home for ___ days DRESSINGS: __No dressings required _x_Keep dressings dry/in place until first office visit __Remove dressings ___ and leave dressings off __Apply ice ___ days __Remove dressings and reapply garment __Apply antibiotic ointment (Bacitracin, Neosporin, etc) to wounds 3-4 times/ day for 10 days BATHING: _x_Keep dressings dry x__Sponge bathing permitted __Showering permitted _x_No swimming, hot tubs or soaking in a tub MEDICATIONS: Resume previous medications unless instructed otherwise by your surgeon. _x_Do not use aspirin, Motrin, Advil or Ibuprofen as these may promote bleeding. Please use Tylenol. _x_Prescription(s) provided: preop in office OTHER INSTRUCTIONS: _x_Record drain output 2-3 times per day SPECIAL CARE INSTRUCTIONS: * It is normal to have a mild fever after surgery. If your temperature is higher than 101.5 degrees F, please call the office at [phone]. * Constipation is a typical side effect of pain medication. An over-the- counter stool softener will help relieve this. * Leaking around surgical drains may occur and should not cause concern. Sometimes these drains become clogged. If this happens, remove the bulb and milk the clot out of the tube, then replace the bulb. * Drainage from wounds after liposuction is normal and should be expected. Garments will become soiled. You should protect furniture and bedding. This drainage should mostly subside within 2-3 days. Leave garments in place unless instructed to remove them. * If you have unusual drainage from a wound or are concerned you have an infection or have any questions or concerns, please call the office at [phone]. FOLLOW UP VISIT: If not already scheduled, please call the office, , when you return home after surgery to schedule an appointment to be seen in _2__ days. Current Hospital Diet Patient's current hospital diet: Discharge Diet Recommended Diet: Regular Diet Procedures Procedures Performed: Right Breast Implant Removal with Partial Capsulectomy Pending Studies Studies pending at discharge: no Medical Emergencies . Who to Call and When: Medical Emergencies: If at any time you feel your situation is an emergency, please call 911 immediately. . Non-Emergent Contact Non-Emergency issues call your: Primary Care Provider Call Non-Emergent contact if: temperature is above 101.5, your pain is not controlled . "Provider Documentation" section prepared by Chantell Johnston. . [place] Drug Monitoring Program Search Results: patient reviewed within database, no issues identified
[2018-01-22] MEDS ORDERED: EpHEDrine SULFATE INJ 50 MG/ML AMP IV PRN (09:15)
[2018-01-22] MEDS ORDERED: ATROPINE SULFATE 0.1 MG/ML 5ML SYR IV PRN (09:15)
[2018-01-22] MEDS ORDERED: ONDANSETRON INJ 2 MG/ML 2 ML VIAL IV PRN ×2 (09:15)
[2018-01-22] MEDS ORDERED: ACETAMINOPHEN 325 MG TAB PO PRN (09:15)
[2018-01-22] MEDS ORDERED: FENTANYL CITRATE INJ 50 MCG/1 ML 2 ML VIAL IV PRN (09:15)
[2018-01-22] MEDS ORDERED: HYDROCODONE/ACETAMIN 5/325MG TAB PO PRN ×2 (09:15)
[2018-01-22] MEDS ORDERED: MoRPHine SULFATE 2 MG/ML CARP IV PRN ×2 (09:15)
[2018-01-22] MEDS ORDERED: PROMETHAZINE HCL INJ 6.25 MG in SODIUM CHLORIDE 0.9% 50ML 50 ML IV PRN (09:15)
--- NOTE | 2018-01-22 09:38 | Anesthesiology Progress Note ---
Anesthesia Post Op Note Date & Time Jan 22, 2018 at 09:38 Vital Signs Pain Intensity: 3 Vital Signs Past 12 Hours Date Time Temp Pulse Resp B/P (MAP) Pulse Ox O2 Delivery O2 Flow Rate FiO2 01/22/18 09:32 72 12 01/22/18 09:32 73 12 100 01/22/18 09:31 110/77 01/22/18 09:27 68 16 01/22/18 09:27 67 16 99 01/22/18 09:26 111/77 01/22/18 09:22 68 13 01/22/18 09:22 68 13 100 01/22/18 09:21 111/77 01/22/18 09:17 70 12 01/22/18 09:17 70 12 100 01/22/18 09:16 105/78 01/22/18 09:14 79 16 01/22/18 09:14 79 16 01/22/18 09:11 114/80 01/22/18 09:09 83 14 100 01/22/18 09:09 83 14 01/22/18 09:06 114/75 01/22/18 09:05 103/78 01/22/18 09:04 95 100 01/22/18 09:04 95 01/22/18 09:04 36.0 94 16 113/74 100 Oxymask 10 01/22/18 06:17 36.5 69 16 107/68 (81) 100 Room Air Notes Mental Status: alert / awake / arousable, participated in evaluation Pt Amnestic to Procedure: Yes Nausea / Vomiting: adequately controlled Pain: adequately controlled Airway Patency, RR, SpO2: stable & adequate BP & HR: stable & adequate Hydration State: stable & adequate Anesthetic Complications: no major complications apparent Block working well in pacu
[2018-01-22 09:50] VITALS: BP 102/69; PULSE 70; TEMP 36.6; O2SAT 100
[2018-01-22 10:20] VITALS: BP 108/73; PULSE 62; O2SAT 99
[2018-01-22 10:50] VITALS: BP 103/75; PULSE 80; TEMP 36.6; O2SAT 100
--- NOTE | 2018-01-22 17:54 | OPERATIVE REPORT ---
DATE OF OPERATION: 01/22/2018 PREOPERATIVE DIAGNOSIS: Status post first stage right breast reconstruction desiring rug hooker hand removal. POSTOPERATIVE DIAGNOSIS: Status post first stage right breast reconstruction desiring rug hooker hand removal. PROCEDURE: Right breast implant removal with partial capsulectomy. SURGEON: Dr. Chantell Johnston. MECHANICAL MAINTENANCE TECHNICIAN: None. ANESTHESIA: General. COMPLICATIONS: None. INDICATION FOR THE PROCEDURE: The patient is a 42-year-old female who presented to my office after undergoing first stage immediate breast reconstruction with tissue rug hooker hand and acellular dermal matrix performed by Dr. Rory Fernandez in 09/2016. She subsequently underwent chemotherapy and radiation, and never had final implant exchange performed. She complains of constant discomfort from her rug hooker hand, has concerns about need for chronic monitoring of her implant and concerns about ALCL and would prefer not to have to deal with implant monitoring. Therefore, she elected to have the implant removed as opposed to replaced. BRIEF DESCRIPTION OF THE PROCEDURE: Risks, benefits, and alternatives of the procedure were explained to the patient who agreed and signed consent. She was identified and marked in the preoperative holding area. She was brought to the operating room where she was positioned supine and placed under anesthesia without incident. Surgical site was prepped and draped sterilely. A time-out procedure was performed. The excision of the prior scar was marked and 1% lidocaine with epinephrine was used to anesthetize the site. A 15 blade scalpel was used to make the incision through skin and the underlying dermis. The skin flaps were quite thin and dissection was carried down using electrocautery through minimal subcutaneous fat to AlloDerm. The scar was sent for pathology. The rug hooker hand was removed and identified. It was a [place] rug hooker hand filled to 350 mL. The pocket was examined. There was a thickened capsule posteriorly with a pliable anterior capsule and AlloDerm. In order to facilitate scarring down of the flaps and in an attempt to prevent seroma formation, I removed as much of the capsule using a lighted retractor and Allis clamps as was feasible. The entire anterior capsule was able to be removed. Posteriorly, about two-thirds was able to be removed, however, medially, there was dense fibrosis and I did not feel it was safe to attempt capsulectomy. Therefore, the capsule was scored and cauterized. A 15 Iranian Sonu drain was placed into the wound bed through a separate stab incision. It was sutured into place. The wound was reapproximated using 3-0 PDS interrupted dermal sutures and 3-0 Monocryl running subcuticular suture. Dermabond Prineo was applied. Dry dressings followed by an Gutierrez wrap were placed. Estimated blood loss was 5 mL. There were no complications. Scar and capsule were sent for pathology. I attest to the content of the Intraoperative Record and any orders documented therein. Any exception s are noted below.
== END 2018-01-22 11:08 | disposition home or self-care (01) ==
LOC: C.ACU 05:49
PROVIDERS: ATTEND Plastic Surgery
DX: Z42.1 Encounter for breast reconstruction following mastectomy (principal); Z85.3 Personal history of malignant neoplasm of breast; F41.8 Other specified anxiety disorders; Z79.899 Other long term (current) drug therapy

== ENCOUNTER 2021-08-23 05:37 | Observation (INO) ==
--- NOTE | 2021-08-16 14:32 | Anesthesiology Consultation ---
Date of Service August 16, 2021 Assessment & Plan (1) Encounter for pre-operative examination: Chart Review Chart Review: Acceptable Risk for Surgery (pending preop Covid testing results ) and Patient NOT seen in Pre Admission Testing -Scope patch ordered for DOS due to PONV (has worked well in the past per nursing assessment) Per nursing assessment 08/16/2021, [facility]. Did drive to [place], [place] for the race and will be returning home 08/16/21. Does not wear mask at outdoors (did not wear mask at the race). Pt is fully vaccinated for Covid. Pt works at [employer] on the [employer] unit- wears proper PPE at all times. Gets tested for Covid twice weekly at work- has always tested Covid negative. No known Covid infection in the past 90 days. Preop Covid testing scheduled 08/20/21= will await results. Due to travel risk- will order Liu for DOS and will leave to anesthesiologist discretion DOS if additional surgery time and/or PPE needed. Pt will need Liu regardless (23 hours observation) in case patient has roommate while in the hospital History Surgery Operation Date: 08/23/21 07:15 Proposed Procedures p Left Breast Simple Mastectomy - Guevara Carrasquillo MD Height/Weight Height: 5 ft 2 in Weight: 70.307 kg Allergies Allergy/AdvReac Type Severity Reaction Status Date / Time meperidine Allergy Mild SHAKES/DIAP Verified 08/16/21 13:31 HORETIC Medications Home Medications Medication Instructions Recorded Confirmed Last Taken anastrozole 1 mg tablet 1 mg PO QAM 08/16/21 08/16/21 Unknown calcium carbonate 600 mg-vitamin 1 tab PO QAM 08/16/21 08/16/21 Unknown D3 5 mcg (200 unit) tablet lorazepam 0.5 mg tablet 0.5 mg PO BID PRN 08/16/21 08/16/21 Unknown Past Medical History Medical History (Updated 08/16/21 @ 14:37 by Juliet Roe PA-C) Breast cancer Right side- dx'ed in 2015- S/p right mastectomy and sentinel LN biopsy with dissection (2016) S/p chemo and XRT in 2017- currently on Armidex -Has dense breasts and is high risk category for left breast - left mastectomy being done for risk reduction Broken jaw 1991 with surgery to repair. No current problems with opening jaw History of motion sickness Kidney stones Nausea and vomiting after administration of anesthetic agent Treated with scope patch Post-menopausal Last menstrual cycle 2016. Past Family History Family History Other No family history of adverse response to anesthesia Past Surgical History Surgical History H/O total mastectomy of right breast with lymph node removal History of breast biopsy left breast (benign) Hx of unilateral oophorectomy Social History Smoking Status: Never smoker Do You Dip or Chew Tobacco: No Hx Alcohol Use: Yes alcohol intake frequency: a few times a month Hx Substance Use: No substance use type: does not use Testing Laboratory Results 07/28/21= WBC: 7.09 H/H: 12.0/35.1 PLATELETS: 292 SODIUM: 142 POTASSIUM: 3.5 CHLORIDE: 104 CO2: 27 BUN: 12 CREATININE: 0.7 GLUCOSE: 88 Echocardiogram Date: 10/21/16 EF: 60-64% LV Function: normal RWMA: + none Other Findings: no LVH Valvular Disease: + no significant valvular disease
[2021-08-23] MEDS ORDERED: ceFAZolin 2000MG 2,000 MG/15 ML SYR IV SCH (06:00)
[2021-08-23] MEDS ORDERED: LACTATED RINGER'S 1,000 ML IV SCH ×2 (06:00→10:29)
[2021-08-23] MEDS ORDERED: SCOPOLAMINE 1 MG TDSY TD ONE (06:39)
[2021-08-23] MEDS ORDERED: ACETAMINOPHEN 1000 MG/100 ML IV IV ONE (06:40)
[2021-08-23] MEDS ORDERED: FAMOTIDINE/PF 20 MG/2 ML VIAL IV ONE (06:40)
[2021-08-23] MEDS ORDERED: MIDAZOLAM HCL 1 MG/ML 2ML VIAL ONE (06:49)
[2021-08-23] MEDS ORDERED: fentaNYL citrate 100 MCG/2 ML VIAL ONE (06:51)
[2021-08-23] MEDS ORDERED: ROCURONIUM BROMIDE 10 MG/ML 5 ML VIAL IV ONE (06:52)
[2021-08-23] MEDS ORDERED: NEOSTIGMINE METHYLSULFATE 1 MG/ML 10ML VIAL ONE ×2 (06:52→08:21)
[2021-08-23] MEDS ORDERED: PROPOFOL IV EMULSION 10 MG/ML 20 ML VIAL IV ONE (06:52)
[2021-08-23] MEDS ORDERED: METOCLOPRAMIDE HCL INJ 5 MG/ML 2 ML VIAL ONE ×2 (06:52)
[2021-08-23] MEDS ORDERED: diphenhydrAMINE 50 MG/ML VIAL ONE (06:52)
[2021-08-23] MEDS ORDERED: ONDANSETRON INJ 2 MG/ML 2 ML VIAL ONE ×2 (06:52→06:53)
[2021-08-23] MEDS ORDERED: LIDOCAINE 2% 2 ML VIAL/AMP(20MG/ML) INFIL ONE (06:52)
[2021-08-23] MEDS ORDERED: DEXAMETHASONE SOD INJ 4 MG/ML VIAL ONE (06:52)
[2021-08-23] MEDS ORDERED: METHYLENE BLUE 0.5% 10 ML VIAL ONE (07:04)
[2021-08-23] MEDS ORDERED: LIDOCAINE 1%/EPINEPHRINE 1:100,000 50 ML VIAL ONE (07:04)
[2021-08-23] MEDS ORDERED: BUPIVACAINE 0.5 % 5 MG/1 ML PF 10ML VIAL ONE (07:10)
--- NOTE | 2021-08-23 07:12 | History & Physical Report ---
Date of Service August 23, 2021 Assessment & Plan (1) At high risk for breast cancer: (2) History of breast cancer: Plan: 45-year-old woman high risk status for breast cancer. Status post right mastectomy for breast cancer in 2015. Recently had an abnormal finding on mammogram and MRI. Biopsy negative. She is extremely dense breasts. Given her high risk status for breast cancer, greater than 20% over the course of her lifetime, in addition to prior mastectomy on the right and extremely dense breast tissue on the left, she would like to proceed with prophylactic left breast mastectomy for risk reduction. We have discussed the risks and benefits, all her questions were answered, and she is agreeable to proceed. We will schedule a sterilized convenience. History of Present Illness Primary Care Provider: Mary Adrian, 45-year-old woman with prior history of right breast cancer status post right mastectomy and sentinel lymph node biopsy. Had abnormality on mammogram on left breast. She has incredibly dense breast tissue. The finding on MRI was benign, however she would like to proceed with left breast prophylactic mastectomy for risk reduction due to her high risk breast cancer status. Allergies Allergy/AdvReac Type Severity Reaction Status Date / Time meperidine Allergy Mild SHAKES/DIAP Verified 08/23/21 06:01 HORETIC Home Medications Medication Instructions Recorded Confirmed Type anastrozole 1 mg tablet 1 mg PO QAM 08/16/21 08/23/21 History calcium carbonate 600 mg-vitamin 1 tab PO QAM 08/16/21 08/23/21 History D3 5 mcg (200 unit) tablet lorazepam 0.5 mg tablet 0.5 mg PO BID PRN 08/16/21 08/23/21 History Past Med/Surg History Medical History Breast cancer Right side- dx'ed in 2015- S/p right mastectomy and sentinel LN biopsy with dissection (2016) S/p chemo and XRT in 2017- currently on Armidex -Has dense breasts and is high risk category for left breast - left mastectomy being done for risk reduction Broken jaw 1991 with surgery to repair. No current problems with opening jaw History of motion sickness Kidney stones Nausea and vomiting after administration of anesthetic agent Treated with scope patch Post-menopausal Last menstrual cycle 2016. Surgical History H/O total mastectomy of right breast with lymph node removal History of breast biopsy left breast (benign) Hx of unilateral oophorectomy Family History Other No family history of adverse response to anesthesia Social History Smoking Status: Never smoker Second Hand Exposure: No; Do You Dip or Chew Tobacco: No; Tobacco Cessation Education Requested by Patient: No Hx Alcohol Use: Yes Hx Substance Use: No Preferred Language: [place] Communication Ability: Effective Police Commanding Officer Required: No Beliefs That Will Affect Care: None Current Living Situation: Spouse and Family Other Information That Helps Us Care for You: No Feels Safe at Home: Yes Safety Concerns: Feels Safe At This Time Review of Systems Review of Systems: All systems reviewed & are unremarkable except as noted in HPI & below Physical Exam Constitutional: WD/WN, vitals as above Eyes: PERRL, conjunctivae normal, anicteric sclerae Neck: trachea midline, no thyromegaly Respiratory: normal respiratory effort, lungs clear to auscultation Cardiovascular: RRR, no murmur, no edema Gastrointestinal (Abdomen): Inspection/Auscultation: abdomen normal to inspection; abdomen not distended Percussion/Palpation: abdomen soft; abdomen nontender Musculoskeletal: Extremities: no cyanosis and no clubbing Skin: no rashes, warm and dry Psychiatric: A+Ox3, euthymic affect Results & Data Results & Data ([facility]) Vital Signs (Past 12 Hours) Vital Signs Temp Pulse Resp BP Pulse Ox 08/23/21 06:02 36.8 C 81 18 144/80 H 99
[2021-08-23] MEDS ORDERED: PROMETHAZINE HCL 6.25 MG in SODIUM CHLORIDE 0.9% 50 ML IV PRN (07:18)
[2021-08-23] MEDS ORDERED: ePHEDrine sulfate 50 MG/ML AMP IV PRN (07:18)
[2021-08-23] MEDS ORDERED: ONDANSETRON INJ 2 MG/ML 2 ML VIAL IV PRN ×2 (07:18→10:29)
[2021-08-23] MEDS ORDERED: ATROPINE SULFATE 0.1 MG/ML 10ML SYR IV PRN (07:18)
[2021-08-23] MEDS ORDERED: fentaNYL citrate 100 MCG/2 ML VIAL IV PRN (07:18)
[2021-08-23] MEDS ORDERED: BUPIVACAINE LIPOSOME 1.3% 266 MG/20 ML VIAL ONE (07:23)
[2021-08-23] MEDS ORDERED: WATER, STERILE FOR INJ 10 ML VIAL ONE (07:37)
[2021-08-23] MEDS ORDERED: GLYCOPYRROLATE 0.2 MG/ML VIAL ONE (08:21)
[2021-08-23] MEDS ORDERED: PHENYLEPHRINE 100MCG/ML 5ML SYR ONE (08:34)
[2021-08-23] MEDS ORDERED: KETOROLAC 30 MG/ML VIAL ONE (08:35)
--- NOTE | 2021-08-23 08:51 | Post Operative Brief Note ---
Immediate Post Op Note v1 Date of Surgery August 23, 2021 Pre & Post Diagnosis Operation Date: 08/23/21 07:15 Pre-Op Diagnosis: Abnormal MRI Breast Post-Op Diagnosis: Abnormal MRI Breast I identified the patient and participated in the time-out.: Yes Procedure Operation Date: 08/23/21 07:15 Actual Procedures p Left Breast Simple Mastectomy(Left) - Guevara Carrasquillo MD Surgeon Guevara Carrasquillo MD Client Services Assistant JENNIFER Keller assisted with tissue retraction and closure Estimated Blood Loss 5 Findings Consistent with Post-Op Diagnosis Drains David-Mcnulty Drain (15french)
--- NOTE | 2021-08-23 08:56 | Operative Report ---
Post Operative Report Pre & Post Diagnosis Operation Date: 08/23/21 07:15 Pre-Op Diagnosis: Abnormal MRI Breast Post-Op Diagnosis: Abnormal MRI Breast I identified the patient and participated in the time-out.: Yes Procedure Operation Date: 08/23/21 07:15 Actual Procedures p Left Breast Simple Mastectomy(Left) - Guevara Carrasquillo MD Surgeon Guevara Carrasquillo MD [employer] Worker JENNIFER Keller assisted with tissue retraction and closure Estimated Blood Loss 5 Findings Consistent with Post-Op Diagnosis Specimens Left breast Anesthesia Type General Complications No immediate complications Indications High risk breast cancer patient; mastectomy for risk reduction Description of Procedure The patient was taken to the operating room, and placed supine on the operating table. A timeout was performed, perioperative antibiotics were administered, SCD boots were placed. After adequate anesthesia and analgesia was obtained, the area was prepped and draped in the normal sterile fashion. Local anesthetic was injected into and around the left breast. An elliptical incision was drawn out on the left breast encompassing the nipple areolar complex. 15 blade scalpel was used to create the elliptical incision that was marked. This was carried into the level of the subcutaneous tissue. Flaps were raised cephalad and caudad. Using a traction countertraction technique, the breast tissue was dissected free from the overlying the subcutaneous tissue using the Bovie electrocautery. The limits of the dissection were the clavicle superiorly, the sternum medially, the rectus abdominis fascia inferiorly, and the axillary fat pad laterally. The breast was removed from the underlying pectoralis major muscle, taking care to include the fascia of the pectoralis major muscle in the specimen. The specimen was marked and oriented and sent off the field for pathology. Attention was turned hemostasis, which was attended to, and was excellent. The wound was copiously irrigated and suctioned free and again hemostasis was excellent. A 15 Azeri round NIK drain was placed through a separate stab incision and was secured in place with a 3-0 nylon suture. The subcutaneous tissue was closed with 3-0 Vicryl suture. The skin was closed with a running 4- 0 Monocryl subcuticular stitch. Benzoin and Steri-Strips were applied. Dressings were applied. The patient tolerated the procedure without complication, and was transferred in stable condition to the PACU. All instrument, needle, and sponge counts were correct at the end of the case. I attest to the content of the Intraoperative Record and any orders documented therein. Any exceptions are noted below.
--- NOTE | 2021-08-23 09:45 | Anesthesiology Progress Note ---
Date of Service August 23, 2021 Anesthesia Post Procedure Vital Signs Vital Signs: Temp Pulse Pulse Resp BP Pulse Ox 08/23/21 09:40 97.0 F L 77 14 141/73 H 100 08/23/21 09:30 105 H 14 129/81 100 08/23/21 09:20 85 14 101/87 100 08/23/21 09:13 96.8 F L 104 H 20 125/70 100 08/23/21 06:02 98.2 F 81 18 144/80 H 99 Transfer of Care Handoff Completed per policy Notes Mental Status: alert / awake / arousable and participated in evaluation Patient Amnestic to Procedure: Yes Nausea / Vomiting: adequately controlled Pain: adequately controlled Airway Patency, RR, SpO2: stable & adequate BP & HR: stable & adequate Hydration State: stable & adequate Anesthetic Complications: no major complications apparent and Pt Satisfied with anesthetic care
[2021-08-23] MEDS ORDERED: PROMETHAZINE HCL 12.5 MG in SODIUM CHLORIDE 0.9% 50 ML IV PRN (10:29)
[2021-08-23] MEDS ORDERED: oxyCODONE/ACETAMINOPHEN 5mg/325mg TAB PO PRN (10:29)
[2021-08-23] MEDS ORDERED: KETOROLAC TROMETHAMINE 15 MG/ML VIAL IV PRN (10:29)
[2021-08-23] MEDS ORDERED: diphenhydrAMINE Capsule 25 MG CAP PO PRN (10:29)
[2021-08-23] MEDS ORDERED: MoRPHine SULFATE 2 MG/ML CARP IV PRN (10:29)
[2021-08-23] MEDS ORDERED: ANASTROZOLE 1 MG TAB PO SCH (11:00)
[2021-08-24] MEDS ORDERED: ENOXAPARIN INJ 40 MG/0.4 ML SYR SQ SCH (06:00)
--- NOTE | 2021-08-25 16:48 | Discharge Summary ---
Date of Service August 25, 2021 Admission HPI Per Admitting Provider 45-year-old woman with prior history of right breast cancer status post right mastectomy and sentinel lymph node biopsy. Had abnormality on mammogram on left breast. She has incredibly dense breast tissue. The finding on MRI was benign, however she would like to proceed with left breast prophylactic mastectomy for risk reduction due to her high risk breast cancer status. Principal Diagnosis Increased risk of breast cancer with a personal history of breast cancer Status post right mastectomy Discharge Data Allergies Allergy/AdvReac Type Severity Reaction Status Date / Time meperidine Allergy Mild SHAKES/DIAP Verified 08/23/21 06:01 HORETIC Procedures Performed Operation Date: 08/23/21 07:15 Actual Procedures p Left Breast Simple Mastectomy(Left) - Guevara Carrasquillo MD Ordered Studies 08/23/21 05:00 US - OR guided needle placemen Routine Hospital Course (1) At high risk for breast cancer: (2) History of breast cancer: Patient presented to [facility] for elective left breast simple mastectomy given her increased risk and a recent abnormal mammogram in the setting of personal history of breast cancer status post right mastectomy and sentinel lymph node biopsy. Patient was taken to the operating room and a left breast simple mastectomy was completed. She was transferred to recovery and to medical/surgical floor for postoperative care. She was doing very well after surgery and elected to go home same day of surgery. She did not stay overnight. Overall hospital course was uneventful. Total Time Total Time Spent Total Time Spent (In Minutes): 10 Minutes Total Time Includes: Examination of the Patient, Discharge Planning and Medication Reconciliation Discharge Plan Discharge Items Patient Disposition: Home - Self-Care Reason For Visit: Abnormal MRI Breast Discharge Diagnosis: S/p left simple prophylactic mastectomy Activity: Per Instructions section Non-emergency contact: Surgeon Call non-emergency contact if: you have any medication questions, your pain is not controlled, your pain is worsening, your pain is concerning for you, you have a fever, your temperature is above 101, your wound has increased redness, your wound has increased drainage and your wound pain has increased Follow-up/Referrals: Mary Adrian, [Primary Care Provider] - Diet: Regular Addtl Attending Provider Instructions: RESTRICTIONS: * No heavy lifting over 10 pounds for at least two weeks. * No strenuous activity for two weeks * No driving while taking narcotic pain medication MEDICATIONS: Resume previous medications unless instructed otherwise by your surgeon. * Percocet 5/325 mg one tablet every 4 hours as needed for pain. * Ibuprofen 600 mg every 6 hours as needed for pain ( take with food) * Recommend daily stool softener (Colace) while taking narcotic pain medication to prevent constipation SPECIAL CARE INSTRUCTIONS: * Wear bra day and night until seen in office. * May shower in 24 hours. Let water run over steri strips and pat dry. * Record drain output daily and keep record. Bring to office with you at follow-up. * Leave steri strips on until seen in office. * Call the surgeon's office with any questions or concerns - (ex. temperature higher than 101 degrees F, excessive bleeding or pain). FOLLOW UP VISIT: If not already scheduled, please call the office for a follow-up appointment for next week at . Pending Studies at Discharge: Yes (surgical pathology, will be reviewed at follow-up) Stand-Alone Forms: My [facility], Opioid Pain Management, Smoking Cessation Medications and DC Order Prescriptions: New oxycodone-acetaminophen [Percocet] 5-325 mg tablet 1 tab PO Q4H PRN (Reason: pain) Qty: 18 RF: 0 Continued anastrozole 1 mg Tablet 1 mg PO QAM RF: 0 calcium carbonate-vitamin D3 600 mg-5 mcg (200 unit) Tablet 1 tab PO QAM RF: 0 lorazepam 0.5 mg Tablet 0.5 mg PO BID PRN (Reason: Anxiety) RF: 0 Discharge Orders: Discharge Order (Routine); Ordered 08/23/21 Ordered By: Gia Keller Admission Data Admit Date/Time: 08/23/21 09:01 Attending Provider: Guevara Carrasquillo Admit Provider: Guevara Carrasquillo Primary Care Provider: Mary Adrian Other Interventions: Discharge Summary Assessment (RN) Last Done: 08/23/21 15:50
== END 2021-08-23 16:15 | disposition home or self-care (01) ==
LOC: ASU 05:37 → 3E 05:37